=== PATIENT | male | born 1955 | race Caucasian/White ===

== ENCOUNTER 2018-05-29 20:42 | Observation (INO) | payer BC ==
[2018-05-29 21:14] LABS: #Eosinphils 0.1 thou/uL (0.0-0.7); #Lymphocytes 1.5 thou/uL (1.20-3.40); #Monocytes 1.2 thou/uL (0.11-0.59); #Neutrophils 13.8 thou/uL (1.40-6.50); %Basophils 0.2 % (0.0-1.0); %Eosinophils 0.5 % (0.0-10.0); %Lymphocytes 8.9 % (21.0-51.0); %Neutrophils 83.4 % (42.0-75.0); Hemoglobin 13.2 g/dL (14.0-18.0); Mean Corpuscular HGB CONC 34.6 g/dL (32.0-36.0); Mean Corpuscular Hemoglobin 31.1 pg (27.0-31.0); Mean Platelet Volume 6.8 fL (7.4-10.4); Platelet Count 248 thou/uL (130-400); RBC Distribution Width 11.6 % (11.5-14.5); Red Blood Cell (RBC) Count 4.25 mill/uL (4.70-6.10); White Blood Cell (WBC) Count 16.5 thou/uL (4.8-10.8)
[2018-05-29 21:27] LABS: INR-International Normal Ratio 1.1; PTT 27.2 SEC (22.9-36.1); Prothrombin Time 14.2 SEC (12.0-14.7)
[2018-05-29 21:33] LABS: ALT (SGPT) 20 U/L (8-55); AST (SGOT) 20 U/L (5-34); Albumin 4.1 g/dL (3.4-4.8); Alkaline Phosphatase 48 U/L (40-150); Anion Gap 12 mmol/L (10-20); BUN (Urea Nitrogen) 18 mg/dL (8.4-25.7); Bilirubin, Total 0.4 mg/dL (0.2-1.2); CK (CPK) 127 U/L (30-200); Calc. Creatinine Clearance 0 mL/min (70-130); Calcium 8.1 mg/dL (7.8-10.44); Carbon Dioxide 23 mmol/L (23-31); Chloride 110 mmol/L (98-107); Estimated GFR-MDRD 79; Globulin 2.9 g/dL (2.4-3.5); Glucose 111 mg/dL (80-115); Lipase 48 U/L (8-78); Potassium 4.3 mmol/L (3.5-5.1); Sodium 141 mmol/L (136-145)
[2018-05-29 21:37] LABS: CKMB 1.3 ng/mL (0-6.6); Troponin I Less than 0.010 ng/mL (< 0.028)
[2018-05-29 21:46] LABS: Bilirubin Negative (Negative); Blood, Urine Negative (Negative); Clarity CLEAR (Clear); Glucose, Urine (Dipstick) Negative (Negative); Leukocyte Negative (Negative); Nitrite Negative (Negative); Protein, Urine (Dipstick) Negative (Neg-Trace); Specific Gravity, Urine 1.011 (1.002-1.036); Urobilinogen 0.2 mg/dL (0.2-1.0); pH, Urine 6.5 (5.0-9.0)
[2018-05-29] MEDS ORDERED: Ondansetron HCl/PF 4 MG/2 ML Vial IVP PRN (22:54)
[2018-05-29] MEDS ORDERED: HYDROcodone/Acetaminophen 5/325 mg Tablet PO PRN ×2 (22:54)
[2018-05-29] MEDS ORDERED: Acetaminophen 325 MG TAB PO PRN (22:54)
[2018-05-29] MEDS ORDERED: Ondansetron ODT 4 MG TAB SL PRN (22:54)
[2018-05-29 23:12] VITALS: BMI 27.2
[2018-05-29] MEDS: Sodium Chloride 0.9% 1,000 ML IV SCH (23:32)
[2018-05-30 00:07] LABS: Hemoglobin 12.6 g/dL (14.0-18.0)
[2018-05-30 00:59] LABS: Troponin I Less than 0.010 ng/mL (< 0.028)
--- NOTE | 2018-05-30 03:33 | HP ---
PRIMARY CARE PHYSICIAN: Vivek Meraz M.D. CODE STATUS: FULL CODE. TIME OF EVALUATION: 2350 hours. CHIEF COMPLAINT: Rectal bleeding. HISTORY OF PRESENT ILLNESS: This is a 63 years old male patient with past medical history of no sign ificant medical problems, came to the hospital after an episode of rectal bleeding, after he was in a toilet and try to go to the room the patient passed out, that happened around 5:30 p.m. He could no t establish any clear triggers and the symptoms disappeared by its own. The patient has recent colon oscopy done yesterday and he was found to have some polyps that were removed, has not resolved yet, c olonoscopy was done again in house. Symptoms are severe. REVIEW OF SYSTEMS: Constitutional: No fever or chills, generalized weakness. Respiratory: No coug h, sputum production or shortness of breath. Cardiovascular: No chest pain, palpitation, shortness of breath. Gastrointestinal: The patient has lower gastrointestinal bleeding, no abdominal pain. C NS: The patient has an episode of syncope, no headache. Genitourinary: No burning with urination. Extremities: No leg swelling. All other systems were reviewed and negative except for the findings mentioned above. PAST MEDICAL HISTORY: No past medical history. PAST SURGICAL HISTORY: No surgical history. PSYCHIATRIC HISTORY: No previous psych history. SOCIAL HISTORY: The patient drinks every day, less than 5 drinks per day. KNOWN ALLERGIES: No known drug allergies. FAMILY HISTORY: Reviewed and noncontributory for current presentation. No history of colon cancer i n the family. REPORTED MEDICATIONS: Aspirin 81 daily. PHYSICAL EXAMINATION: VITAL SIGNS: On presentation, heart rate 79, respiratory rate was 24, oxygenation saturation was 98, blood pressure 145/80. GENERAL APPEARANCE: The patient was alert, oriented, not in any acute distress. HEENT: Eyes: Normal conjunctiva. Moist oral mucosa. Anicteric. NECK: No JVD. RESPIRATORY: Bilateral air entry. No rales, no wheezing. Symmetric expansion. CARDIOVASCULAR: Normal rate, regular rhythm. No murmurs, no gallop. No edema. ABDOMEN: Soft, normal bowel sounds. MUSCULOSKELETAL: Baseline range of motion and strength. No tenderness. SKIN: Warm and intact. No pallor, no rash or redness. Peripheral pulses are present. Capillary re fill seems to be intact. NEUROLOGIC: Baseline sensory. No evidence of any new focal weakness. Baseline speech. Cranial ner ves seem to be intact. PSYCHIATRIC: The patient is in good mood. No anxiety, oriented, optimal judgment. LABORATORY DATA: Reviewed. White count 16.5, hemoglobin 12.6, MCV 90, platelet count 248. Sodium 1 41, potassium 4.3, chloride 110, carbon dioxide 23, anion gap 12, BUN 18, creatinine 0.9, GFR 79, glu cose 111. Lactic acid 1.8, calcium 9.1, total bilirubin 0.4, AST 20, ALT 30. Troponins are negative x2. Beta natriuretic peptide was 16.9. Urine was negative. ASSESSMENT AND PLAN: The patient will be placed in the hospital with the following medical problems. 1. Syncope, most likely secondary to lower gastrointestinal bleeding, we will do carotid ultrasound and cardiac echo to rule out any other etiologies. 2. Lower gastrointestinal bleeding. The patient has had a procedure yesterday, we will call GI for further evaluation and need for any further planning. Hemoglobin is stable, monitor hemoglobin, and adjust treatment as needed. 3. Deep venous thrombosis prophylaxis. The patient is ambulatory.
[2018-05-30 03:37] LABS: Troponin I Less than 0.010 ng/mL (< 0.028)
[2018-05-30 03:54] LABS: Anion Gap 13 mmol/L (10-20); BUN (Urea Nitrogen) 16 mg/dL (8.4-25.7); Calc. Creatinine Clearance 123 mL/min (70-130); Calcium 8.1 mg/dL (7.8-10.44); Carbon Dioxide 22 mmol/L (23-31); Chloride 110 mmol/L (98-107); Estimated GFR-MDRD Greater than 90; Glucose 113 mg/dL (80-115); Potassium 4.2 mmol/L (3.5-5.1); Sodium 141 mmol/L (136-145)
[2018-05-30 05:57] LABS: Hemoglobin 11.8 g/dL (14.0-18.0)
[2018-05-30] MEDS: Fish Oil 1,000 MG CAP PO SCH (08:52)
[2018-05-30] MEDS: Multivit, Therapeutic 1 TAB PO SCH (08:52)
[2018-05-30] MEDS: Sodium Chloride 0.9% 1,000 ML IV SCH (08:52)
[2018-05-30] MEDS ORDERED: GoLYTELY 4,000 ml Bottle PO STA (09:40)
--- NOTE | 2018-05-30 10:26 | ULT ---
CAROTID ULTRASOUND: DATE: 05/30/18 COMPARISON: None. HISTORY: Syncope. TECHNIQUE: Multiplanar Carbajal scale and color Doppler images were obtained in a carotid ultrasound. Spectral keshia sis of the Doppler waveforms were performed. FINDINGS: No significant plaque is visualized in either internal or common carotid artery. The Doppler waveform s are normal bilaterally. Peak systolic velocity in the right ICA is 72 cm/second. Peak systolic velocity in the right CCA is 8 3 cm/second. The right ICA/CCA ratio is 0.9. Peak systolic velocity in the left ICA is 68 cm/second. Peak systolic velocity in the left CCA is 78 cm/second. The left ICA/CCA ratio is 0.9. Both vertebral arteries demonstrate antegrade flow without focal stenosis. IMPRESSION: No evidence of hemodynamically significant stenosis. POS: CHHAYA
[2018-05-30] MEDS ORDERED: PROPOFOL 200 MG/20 ML VIAL ONE (11:19)
--- NOTE | 2018-05-30 12:38 | CON ---
DATE OF CONSULTATION: 05/30/2018 GASTROENTEROLOGY CONSULTATION CHIEF COMPLAINT: Blood in the stool. HISTORY OF PRESENT ILLNESS: Mr. Hoffman is a 63-year-old man who underwent colonoscopy by Dr. Jeramy champion on Thursday, 2 days ago. He took out a very large 5 cm polyp from the ascending colon. This was re moved in piecemeal fashion and was treated with argon plasma coagulation and Hemoclip was placed over a depressed red spot in the base of the polypectomy ulcer. The patient did well initially following the procedure; however, yesterday evening around 6:00 p.m., he developed 3 episodes of hematochezia. Following this, he was standing up and then passed out with brief loss of consciousness. He then t ried to sit back up and felt like he was about to pass out again. His had him brought to the em ergency room by ambulance and he received IV fluids and has been feeling fine since then. He has no nausea or vomiting, no diarrhea or constipation otherwise. He has had no bowel movement since early yesterday evening. PAST MEDICAL HISTORY: Arthritis. PAST SURGICAL HISTORY: Colonoscopy 2 days ago. FAMILY HISTORY: Negative for GI malignancy. SOCIAL HISTORY: He drinks a couple of beers daily. ALLERGIES: No known drug allergies. MEDICATIONS: He takes aspirin daily in addition to meloxicam. REVIEW OF SYSTEMS: Negative x10 systems reviewed except as stated in the history of present illness. PHYSICAL EXAMINATION: VITAL SIGNS: Temperature 98.4, pulse 60, blood pressure 133/76. GENERAL: He is in no acute distress. He is alert and oriented x3. HEENT: Eyes have no scleral icterus. Oropharynx is clear without lesions. NECK: No cervical or supraclavicular lymphadenopathy. LUNGS: Clear to auscultation bilaterally. HEART: Regular rate and rhythm. ABDOMEN: Soft, nontender, nondistended. Bowel sounds are present. EXTREMITIES: No lower extremity edema. LABORATORY DATA: White blood cell count was 16.5 on presentation. Hemoglobin was 13.2 and this has decreased to 11.8 this morning. INR 1.1, creatinine 0.76. IMPRESSION: 1. Post-polypectomy hemorrhage after a large right-sided polypectomy 2 days ago. 2. His white blood cell count is noted to be elevated; however, he has no tenderness in the right lo wer quadrant to indicate a more significant post-polypectomy syndrome. RECOMMENDATIONS: He will receive bowel prep today and we will perform colonoscopy today.
[2018-05-30 12:44] LABS: Hemoglobin 13.1 g/dL (14.0-18.0)
[2018-05-30] MEDS ORDERED: Sodium Chloride 0.9% 1,000 ML IV SCH (13:00)
[2018-05-30] MEDS ORDERED: Fentanyl 100 MCG/2 ML VIAL ONE (13:45)
[2018-05-30 18:22] VITALS: TEMP 97.8
--- NOTE | 2018-05-30 19:03 | PDOC.PN ---
- Subjective Encounter Start Date: 05/30/18 Encounter Start Time: 11:30 Subjective: pt up in bed no complains - Objective Resuscitation Status: Resuscitation Status FULL:Full Resuscitation Vital Signs & Weight: Vital Signs (12 hours) Temp Pulse Resp BP Pulse Ox 05/30/18 18:21 97.8 F 68 20 120/63 98 05/30/18 15:44 97.5 F L 67 16 123/74 100 05/30/18 12:13 97.5 F L 69 16 122/81 98 05/30/18 08:50 98.4 F 60 20 05/30/18 07:12 98.4 F 60 20 133/76 96 Weight Weight 195 lb 3.2 oz I&O: 05/29/18 05/30/18 05/31/18 06:59 06:59 06:59 Intake Total 5482 Balance 5482 Result Diagrams: 05/30/18 12:23 05/30/18 03:11 Phys Exam - Physical Examination HEENT: PERRLA, moist MMs, sclera anicteric, TM's clear, oral pharynx no lesions , 2+ tonsils Neck: no nodes, no JVD, supple, full ROM Respiratory: no wheezing, no rales, no rhonchi, wheezing present, clear to auscultation bilateral Cardiovascular: RRR, no significant murmur, no rub, gallop, irregular Gastrointestinal: soft, non-tender, no distention, positive bowel sounds Dx/Plan (1) Lower GI bleed Code(s): K92.2 - GASTROINTESTINAL HEMORRHAGE, UNSPECIFIED Status: Acute (2) Syncope Code(s): R55 - SYNCOPE AND COLLAPSE Status: Acute - Plan pt had recent colonoscopy on thursday. -: pt will drinking prep for colonoscopy today -: hh stable -: echo/carotid doppler normal * . Review of Systems - Review of Systems ENT: negative: Ear Pain, Ear Discharge, Nose Pain, Nose Discharge, Nose Congestion, Mouth Pain, Mouth Swelling, Throat Pain, Throat Swelling, Other Respiratory: negative: Cough, Dry, Shortness of Breath, Hemoptysis, SOB with Excertion, Pleuritic Pain, Sputum, Wheezing Cardiovascular: negative: chest pain, palpitations, orthopnea, paroxysmal nocturnal dyspnea, edema, light headedness, other Gastrointestinal: negative: Nausea, Vomiting, Abdominal Pain, Diarrhea, Constipation, Melena, Hematochezia, Other - Medications/Allergies Allergies/Adverse Reactions: Allergies Allergy/AdvReac Type Severity Reaction Status Date / Time No Known Drug Allergies Allergy Verified 05/29/18 22:54 Medications: Current Medications Fish Oil (Fish Oil) 1,000 mg PO DAILY [facility] Last Admin: 05/30/18 08:52 Dose: Not Given Multivitamins (Theragran) 1 tab PO DAILY [facility] Last Admin: 05/30/18 08:52 Dose: Not Given
--- NOTE | 2018-05-30 19:55 | OP ---
DATE OF PROCEDURE: 05/30/2018 PROCEDURE: Colonoscopy with control of hemorrhage. PREOPERATIVE DIAGNOSIS: Lower gastrointestinal bleed from polypectomy ulcer. PROCEDURE IN DETAIL: Informed consent was obtained from the patient. He was sedated with total intr avenous anesthesia. The rectal exam was performed and was normal. The preparation quality was good. The colonoscope was advanced to the cecum where the ileocecal valve and appendiceal orifice were cl early identified. There was some red-tinged fluid in the distal colon; however, the active bleeding has stopped. The polypectomy ulcer was identified in the proximal ascending colon. Two Hemoclips we re in place. There were two red spots in the polypectomy ulcer base, which were the potential bleedi ng sites. A Hemoclip was placed over both sites. There was diverticulosis in the left colon. The r emainder of the colonic mucosa was unremarkable including retroflexed views. IMPRESSION: 1. Polypectomy ulcer in the ascending colon with no residual polyp identified. Two clips were noted to be in place. There is no ongoing active bleed. Two additional Hemoclips were placed over 2 red spots in the ulcer base with good hemostasis confirmed. 2. Left-sided diverticulosis. RECOMMENDATIONS: 1. Follow up with Dr. Jones in a week. 2. Advance diet.
[2018-05-31 05:22] LABS: #Basophils 0.1 thou/uL (0.0-0.2); #Eosinphils 0.2 thou/uL (0.0-0.7); #Lymphocytes 1.7 thou/uL (1.20-3.40); #Monocytes 0.6 thou/uL (0.11-0.59); #Neutrophils 4.4 thou/uL (1.40-6.50); %Basophils 0.8 % (0.0-1.0); %Eosinophils 2.7 % (0.0-10.0); %Lymphocytes 23.7 % (21.0-51.0); %Monocytes 9.2 % (0.0-10.0); %Neutrophils 63.6 % (42.0-75.0); Hemoglobin 11.5 g/dL (14.0-18.0); Mean Corpuscular Hemoglobin 31.3 pg (27.0-31.0); Mean Corpuscular Volume 89.5 fL (78.0-98.0); Mean Platelet Volume 6.8 fL (7.4-10.4); Platelet Count 212 thou/uL (130-400); RBC Distribution Width 11.5 % (11.5-14.5); Red Blood Cell (RBC) Count 3.67 mill/uL (4.70-6.10)
[2018-05-31 08:13] VITALS: BP 123/76
[2018-05-31] MEDS: Multivit, Therapeutic 1 TAB PO SCH (09:12)
[2018-05-31] MEDS: Fish Oil 1,000 MG CAP PO SCH (09:12)
--- NOTE | 2018-05-31 09:52 | PRG ---
DATE OF SERVICE: 05/31/2018. SUBJECTIVE: Mr. Hoffman has done well since followup colonoscopy. He has had no further stool out put. He has no abdominal discomfort. He has been tolerating his diet well. OBJECTIVE: VITAL SIGNS: Temperature 97.8, pulse 72, blood pressure 123/76. ABDOMEN: Soft, nontender. Bowel sounds are present. LABORATORY DATA: Hemoglobin 11.5. IMPRESSION: Post-polypectomy hemorrhage, resolved. Two additional Hemoclips were placed over a coup le of red spots in the polypectomy ulcer base. He has had no further bleeding since admission. PLAN: 1. He will follow up with Dr. Jones later this week to go over biopsy results from the large polyp that was removed from the ascending colon. 2. Discharge home this morning.
--- NOTE | 2018-05-31 10:39 | DIS ---
DATE OF ADMISSION: 05/29/2018 DATE OF DISCHARGE: 05/31/2018 PRIMARY CARE PHYSICIAN: Dr. Vivek Meraz DISCHARGE DIAGNOSES: 1. Post-procedure lower gastrointestinal hemorrhage. 2. Polypectomy ulcer. 3. Syncope and collapse. 4. Acute blood loss anemia. CONSULTATIONS: Gastroenterology, Dr. Alvaro Garcia. PROCEDURES: Colonoscopy 05/30/2018 that showed a polypectomy ulcer with no active bleed and 2 hemost atic clips and 2 more hemostatic clips were placed. HISTORY AND PHYSICAL: Mr. Hoffman is a 63-year-old white gentleman with a history of recent colono scopy and polypectomy. The patient did well intraoperatively; however, the day after the procedure t he patient noted rectal bleeding around 5:30 p.m. They seemed to resolve on their own and had not had any more. The patient did pass out and so we were called for admission. HOSPITAL COURSE: The patient was seen and examined by Dr. Pierson, placed in observation. Echo and carotid ultrasounds were done that were unremarkable. Hemoglobin did initially start at 13.2, dropp ed to 11.8, remained stable at 13.1 today. The patient had no further rectal bleeding. He did go to the endoscopy suite on 05/30/2018 where an ulceration was found at the polypectomy site. Hemostatic clips were in place and no active bleed. Two more clips were placed with good hemostasis continued and the patient was watched overnight. Today, he has done well, had no more syncope or presyncope. Blood counts are stable. He is stable f or discharge with outpatient followup. FOLLOWUP: 1. Primary care physician in [address] Jones with Gastroenterology in 2-3 weeks. DISCHARGE CONDITION: Stable. DISPOSITION: He will be discharged home via private vehicle. DISCHARGE ACTIVITY: Per cardiopulmonary limits. The patient has been given excused from work medica lly until he is stable to return 06/02/2018 if he does not have any further episodes. DISCHARGE DIET: Heart healthy recommended. DISCHARGE MEDICATIONS: 1. Multivitamin daily. 2. [place] 3 tablet daily. 3. Aspirin 81 mg daily. 4. Meloxicam 15 mg daily.
== END 2018-05-31 11:32 | disposition home or self-care (01) ==
LOC: ERS 20:42 → 2SW 22:45
PROVIDERS: ADMIT Hospitalist; ATTEND Hospitalist
PROC: 0W3P8ZZ Control Bleeding in Gastrointestinal Tract, Via Natural or Artificial Opening Endoscopic (ICD-10-PCS; principal; 2018-05-30)
DX: K91.840 Postprocedural hemorrhage of a digestive system organ or structure following a digestive system procedure (principal); K57.30 Diverticulosis of large intestine without perforation or abscess without bleeding; R55 Syncope and collapse; M19.90 Unspecified osteoarthritis, unspecified site; D62 Acute posthemorrhagic anemia; Z86.010 Personal history of colon polyps; Z79.82 Long term (current) use of aspirin; Z79.899 Other long term (current) drug therapy; Z98.890 Other specified postprocedural states
CPT/HCPCS: 36415; 80048; 80053; 81003; 82274; 82553; 83605; 83690; 83880; 84484; 85018; 85025; 85610; 85730; 86850; 86900; 86901; 93306; 93880; 96360; 96361; 99285; G0378; J2704; J3010

== ENCOUNTER 2018-06-21 11:30 | Inpatient (IN) | payer BC ==
[2018-06-22 13:32] VITALS: BMI 27.1
[2018-06-29] MEDS ORDERED: Sodium Chloride 0.9% 100 ML ONE (11:28)
[2018-06-29] MEDS ORDERED: Ketorolac Tromethamine 30 MG/ML VIAL ONE (11:28)
[2018-06-29] MEDS ORDERED: cefOXitin 2 GM VIAL ONE (11:28)
[2018-06-29] MEDS ORDERED: Midazolam HCl 2 mg/2 ml Vial ONE (12:31)
[2018-06-29] MEDS ORDERED: Fentanyl 100 MCG/2 ML VIAL ONE (12:31)
[2018-06-29] MEDS ORDERED: Dexamethasone 4 mg/ml Vial ONE (12:32)
[2018-06-29] MEDS ORDERED: Bupivacaine HCl 0.5%/Epinephrine 1:200,000/PF 30 ml Vial ONE (13:48)
[2018-06-29] MEDS ORDERED: Fentanyl 250 MCG/5 ML VIAL ONE (14:24)
[2018-06-29] MEDS ORDERED: PHENYLEPHRINE-NS 100 MCG/ML 10 ML SYRINGE ONE (14:31)
[2018-06-29] MEDS ORDERED: PROPOFOL 200 MG/20 ML VIAL ONE (14:31)
[2018-06-29] MEDS ORDERED: diphenhydrAMINE 50 MG/ML VIAL ONE (14:31)
[2018-06-29] MEDS ORDERED: Dexamethasone 20 MG/5 ML VIAL ONE (14:31)
[2018-06-29] MEDS ORDERED: Metoclopramide HCl 10 MG/2 ML VIAL ONE (14:31)
[2018-06-29] MEDS ORDERED: Lidocaine 1% PF 5 ML VIAL ONE (14:31)
[2018-06-29] MEDS ORDERED: Glycopyrrolate 0.2 MG/ML 5 ML SYRINGE ONE (14:31)
[2018-06-29] MEDS ORDERED: Ondansetron HCl/PF 4 MG/2 ML Vial ONE (14:31)
[2018-06-29] MEDS ORDERED: Indocyanine Green 25 MG/10 ML VIAL ONE (14:35)
[2018-06-29] MEDS ORDERED: Bupivacaine/Epinephrine 0.25% 30 ML VIAL ONE (14:35)
[2018-06-29] MEDS ORDERED: Promethazine HCl 25 MG/ML VIAL IM PRN ×2 (19:32→21:21)
[2018-06-29] MEDS ORDERED: Ondansetron HCl/PF 4 MG/2 ML Vial IVP PRN ×2 (19:32→21:21)
[2018-06-29] MEDS ORDERED: Promethazine HCl 25 MG/ML VIAL SLOW IVP PRN (19:32)
[2018-06-29] MEDS ORDERED: Morphine 4 MG/ML Carpuject SLOW IVP PRN (21:21)
[2018-06-29] MEDS ORDERED: hydrALAZINE 20 MG/ML VIAL SLOW IVP PRN (21:21)
[2018-06-29] MEDS ORDERED: Morphine 4 MG/ML VIAL SLOW IVP PRN (21:41)
[2018-06-29] MEDS ORDERED: Famotidine/PF 20 mg/2ml Vial SLOW IVP SCH (21:45)
--- NOTE | 2018-06-29 21:45 | CON ---
DATE OF CONSULTATION: 06/29/[address] Grissom regarding difficult Horton catheter placement, subsequent hematu rolly. HISTORY OF PRESENT ILLNESS: Mr. Hoffman is a 63-year-old male currently on the operating room table about to undergo robotic-assisted laparoscopic hemicolectomy. The patient was found to h ave some polyps of concern. As the patient was being prepped, an indwelling Horton catheter was place d by the OR staff, demonstrated difficulty passing to the level of the bladder, balloon was not infla laura; however, subsequently had gross hematuria with non-drainage of his Horton bag. Review of records was obtained as well as history obtained from Dr. Grissom demonstrates no significa nt past medical or surgical history, no history of record. Family is not available to obtain any pertinent urologic history. PAST MEDICAL HISTORY: Colon polyps. PAST SURGICAL HISTORY: None. PSYCHIATRIC HISTORY: None. SOCIAL HISTORY: Social drinker. ALLERGIES: No known drug allergies. FAMILY HISTORY: Noncontributory. HOME MEDICATIONS: Include multivitamin and omega-3. PHYSICAL EXAMINATION: GENERAL: The patient is currently intubated in dorsal lithotomy position. There is gross blood at t he meatus. ABDOMEN: Soft, nontender, nondistended. GENITOURINARY: Circumcised. Meatus is grossly unremarkable with no significant meatal stenosis. Te stes are descended with no evidence of intratesticular mass. RECTAL: Digital rectal exam, approximately 35 to 40-gram prostate with no discrete nodularity. EXTREMITIES: No cyanosis, clubbing, or edema. PERTINENT LABORATORY AND IMAGING: White count 5, hemoglobin 14, platelet 342. Coagulation profile i s within normal limits. Creatinine is 0.8. PSA, 03/2018, 1.59. 05/2018 UA is grossly unremarkable. There is no prior urine culture. No imaging to review. IMPRESSION AND PLAN: 1. Mr. Hoffman is a 63-year-old male currently on the operating room table, about to undergo robot ic-assisted hemicolectomy. 2. Difficult Horton catheter placement. Please see my operative note regarding details.
--- NOTE | 2018-06-29 22:08 | OP ---
DATE OF PROCEDURE: 06/29/2018 PREOPERATIVE DIAGNOSIS: Gross hematuria, traumatic Horton catheter placement. POSTOPERATIVE DIAGNOSIS: Gross hematuria, traumatic Horton catheter placement. PROCEDURES: Diagnostic cystoscopy, 18-Barb[place] Councill-tip Horton catheter over guidewire assist, urethral dilatation. SURGEON: Jessenia Almonte DO ANESTHESIA: General. COMPLICATIONS: None. DISPOSITION: The patient to undergo robotic hemicolectomy by Dr. Grissom. INTRAOPERATIVE FINDINGS: 1. Mild BPH component with no significant outlet obstruction from BPH. 2. Multi-annular proximal penile bulbar stricture, caliber approximately 14-16 [place]. 3. 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 INDICATIONS FOR THE PROCEDURE AND HISTORY: Mr. Hoffman is undergoing a robotic hemicolectomy, unable to place a Horton catheter and subsequent gross hematuria. Cystoscopy confirms Horton false passage due to history of urethral stricture disease, occult. DESCRIPTION OF PROCEDURE: The patient currently in dorsal lithotomy position. Genital area was formally prepped and draped. We first used a flexible cystoscope to stage. There was a large false passage at the anterior bulbar urethra. A flap of mucosa was seen just ventral to this. We used a 0.35 guidewire to get underneath the flap of mucosa, which was the true lumen. The wire was passed to the level of the bladder. I was unable to pass the flexible cystoscope as there were multiple annular strictures with a false passage associated with it. Therefore, I did transition to a 17-Barbadian rigid cystoscope. Wire was followed to the level of the bladder. Again noted was multi-annular bulbar penile stricture, approximately 3-4 in number, most of these were wide caliber in which I was able to get the rigid cystoscope without significant issues to the level of the bladder. Prostatic urethra demonstrated coapting lateral lobes with no significant outlet obstruction per se. Bladder was grossly unremarkable. The ureteral orifices were identified in normal anatomical location approximately 5-8 mm away from the bladder neck. No significant trabeculation tumor or stones were visualized. With the wire in situ, I did passively dilate his strictures with a 22-Barbadian cystoscope without difficulty. Subsequently, an 18-Bar[place] Councill-tip Horton catheter was passed over a guidewire assist. Guidewire was then subsequently removed and 10 mL insufflated. The patient tolerated the procedure well. He will undergo robotic hemicolectomy per Dr. Grissom. I do recommend coverage due to false passage. Antibiotics for a few days. He will have an indwelling Horton catheter for minimum 7-10 days due to history of stricture, false passage. [facility]
[2018-06-29] MEDS: D5 1/2 NS w/20 mEq KCL 1,000 ML IV SCH (23:38)
[2018-06-29] MEDS: Acetaminophen 1,000 MG in Premix Bag 1 BAG IVPB SCH (23:39)
[2018-06-29] MEDS: Ketorolac Tromethamine 30 MG/ML VIAL IVP SCH (23:39)
[2018-06-30 04:49] LABS: #Lymphocytes 0.5 thou/uL (1.20-3.40); #Monocytes 0.5 thou/uL (0.11-0.59); #Neutrophils 12.7 thou/uL (1.40-6.50); %Basophils 0.1 % (0.0-1.0); %Eosinophils 0.1 % (0.0-10.0); %Lymphocytes 3.7 % (21.0-51.0); %Monocytes 3.5 % (0.0-10.0); %Neutrophils 92.6 % (42.0-75.0); Hemoglobin 12.5 g/dL (14.0-18.0); Mean Corpuscular HGB CONC 33.1 g/dL (32.0-36.0); Mean Corpuscular Hemoglobin 29.7 pg (27.0-31.0); Mean Corpuscular Volume 89.7 fL (78.0-98.0); Mean Platelet Volume 7.3 fL (7.4-10.4); Platelet Count 311 thou/uL (130-400); RBC Distribution Width 11.5 % (11.5-14.5); Red Blood Cell (RBC) Count 4.21 mill/uL (4.70-6.10); White Blood Cell (WBC) Count 13.7 thou/uL (4.8-10.8)
[2018-06-30 04:59] LABS: Anion Gap 11 mmol/L (10-20); BUN (Urea Nitrogen) 12 mg/dL (8.4-25.7); Calc. Creatinine Clearance 109 mL/min (70-130); Calcium 8.4 mg/dL (7.8-10.44); Carbon Dioxide 22 mmol/L (23-31); Chloride 106 mmol/L (98-107); Estimated GFR-MDRD 90; Glucose 185 mg/dL (80-115); Sodium 135 mmol/L (136-145)
[2018-06-30] MEDS: Acetaminophen 1,000 MG in Premix Bag 1 BAG IVPB SCH ×3 (05:09→16:51)
[2018-06-30] MEDS: Ketorolac Tromethamine 30 MG/ML VIAL IVP SCH ×4 (05:10→20:52)
[2018-06-30] MEDS: D5 1/2 NS w/20 mEq KCL 1,000 ML IV SCH ×3 (06:22→23:38)
--- NOTE | 2018-06-30 07:51 | PRG ---
DATE OF SERVICE: 06/30/2018 SUBJECTIVE: The patient is resting comfortably in minimal discomfort. Catheter draining clear yellow urine. No significant discharge per meatus. PHYSICAL EXAMINATION: VITAL SIGNS: Stable. He is afebrile. ABDOMEN: Soft, nontender, nondistended. GENITOURINARY: Horton catheter adequately secured with clear dilute urine. No active oozing from the meatus is noted. EXTREMITIES: No cyanosis, clubbing or edema. LABORATORY DATA: White blood cell count 13, hemoglobin 12, platelets 0.8. IMPRESSION AND PLAN: 1. Mr. Hoffman is a 63-year-old male status post cystoscopy, Horton catheter over guidewire assist, urethral dilatation. 2. False passage traumatic Horton catheter placement. 3. Cystoscopy demonstrating multiannular urethral stricture. No significant BPH component. 4. Digital rectal exam intraoperative was grossly unremarkable with no significant outlet obstruction contributing from the prostate on cystoscopy. As urine output is clear, may start his Lovenox subcu for DVT prophylaxis. I do recommend antibiotic regimen. Discussed with patient and regarding indications for indwelling Horton catheter due to history of stricture false passage. He does relate prior history of decreased stream for quite some time. When the patient is ready for discharge, Horton catheter will be transitioned to a leg bag. will follow on this admission. MOLLY
[2018-06-30] MEDS ORDERED: Enoxaparin Sodium 40 MG/0.4 ML SYRINGE SC SCH ×2 (09:00)
[2018-06-30] MEDS: Famotidine/PF 20 mg/2ml Vial SLOW IVP SCH ×2 (09:04→20:55)
[2018-06-30] MEDS: Famotidine 20 MG TAB PO SCH ×2 (09:39→20:52)
[2018-06-30] MEDS ORDERED: cefTRIAXone\\ROCEPHIN 1 GM, Syringe 0.4 ML in Sterile Water 9.6 ML SLOW IVP SCH (20:00)
[2018-06-30] MEDS: cefTRIAXone\\ROCEPHIN 1 GM in Sodium Chloride 0.9% 100 ML IVPB SCH (20:52)
[2018-06-30] MEDS ORDERED: HYDROcodone/Acetaminophen 7.5/325 mg Tablet PO PRN ×2 (21:54→21:55)
[2018-07-01] MEDS: Ketorolac Tromethamine 30 MG/ML VIAL IVP SCH ×3 (04:03→16:22)
[2018-07-01] MEDS: D5 1/2 NS w/20 mEq KCL 1,000 ML IV SCH ×3 (04:04→20:45)
[2018-07-01] MEDS: Famotidine 20 MG TAB PO SCH ×2 (08:20→20:44)
[2018-07-01] MEDS: Famotidine/PF 20 mg/2ml Vial SLOW IVP SCH ×2 (08:22→20:45)
--- NOTE | 2018-07-01 08:33 | PRG ---
DATE OF SERVICE: 07/01/2018 SUBJECTIVE: The patient without complaints. PHYSICAL EXAMINATION: VITAL SIGNS: Vital signs are stable, having bowel movements ready for discharge today. 1550 of shantel r dilute urine noted. ABDOMEN: Soft. GENITOURINARY: Horton catheter adequately secured, I did transition him at bedside to a leg bag. IMPRESSION AND PLAN: Mr. Hoffman is a 63-year-old male. Intraoperative consultation obtained due to false passage traumatic Horton catheter. Cystoscopy demonstrating multiannular bulbar stricture. No significant BPH component. Catheter was placed over guidewire assist. Recommend indwelling Horton catheter until followup appointment next , appointment in chart. The patient to take antibi otics for 10 days, ciprofloxacin prescription is in chart. Instruct patient regarding leg bag gravit y bag use. Follow up next week for catheter removal. Recommend staging cystoscopy at a later date.
[2018-07-01 12:17] LABS: Hemoglobin 9.6 g/dL (14.0-18.0); Mean Corpuscular HGB CONC 31.7 g/dL (32.0-36.0); Mean Corpuscular Volume 91.5 fL (78.0-98.0); Mean Platelet Volume 7.1 fL (7.4-10.4); Platelet Count 338 thou/uL (130-400); RBC Distribution Width 11.6 % (11.5-14.5); Red Blood Cell (RBC) Count 3.31 mill/uL (4.70-6.10); White Blood Cell (WBC) Count 20.9 thou/uL (4.8-10.8)
[2018-07-01 12:37] LABS: ALT (SGPT) 17 U/L (8-55); AST (SGOT) 21 U/L (5-34); Albumin 3.4 g/dL (3.4-4.8); Alkaline Phosphatase 41 U/L (40-150); Anion Gap 9 mmol/L (10-20); BUN (Urea Nitrogen) 16 mg/dL (8.4-25.7); Bilirubin, Total 0.3 mg/dL (0.2-1.2); Calc. Creatinine Clearance 103 mL/min (70-130); Calcium 8.1 mg/dL (7.8-10.44); Carbon Dioxide 22 mmol/L (23-31); Chloride 109 mmol/L (98-107); Estimated GFR-MDRD 84; Globulin 2.5 g/dL (2.4-3.5); Glucose 130 mg/dL (80-115); Protein, Total 5.9 g/dL (5.8-8.1); Sodium 136 mmol/L (136-145)
[2018-07-01 12:40] LABS: Band 7 % (5-11); Lymphocytes 11 % (21-51); MDiff Complete? YES; Monocytes 3 % (0-10); Neutrophil 79 % (42-75); PLT Morphology Comment Appears Adequate
[2018-07-01 14:16] LABS: Hemoglobin 8.8 g/dL (14.0-18.0)
[2018-07-01 14:48] LABS: INR-International Normal Ratio 1.2; PTT 29.2 SEC (22.9-36.1); Prothrombin Time 15.3 SEC (12.0-14.7)
--- NOTE | 2018-07-01 15:01 | PRG ---
DATE OF SERVICE: 07/01/2018 SUBJECTIVE: Mr. Hoffman is postoperative day number 2 from robotic right colectomy. He appeared t o be doing very well yesterday, was tolerating his liquid diet and ambulating well. He was entirely hemodynamically stable. This morning, he was advanced to full liquid diet. He has had at least 3 daniella wel movements today. The first one had some old blood, about which is reassured. By the third one, he had had evidence of more blood per rectum and at the time he had his third bowel movement, he appa rently lost consciousness. This was a witnessed episode and nursing staff did a wonderful job taking care of him and stabilizing him, so he did not fall and transferring him to the wheelchair and subse quently to his bed. He regained consciousness fairly quickly. He did have a lot of sweating at that time. He was not tachycardic, but his blood pressure did drop down to the mid 90s systolic. By the time I came to see him after this episode, he was resting comfortably in bed and had no compla ints. He notes that he has never had any significant abdominal pain. His appetite has been fine. PHYSICAL EXAMINATION: VITAL SIGNS: He is afebrile, pulse is in the 60s-70s, blood pressure prior to this episode was 120s/ 70. Currently, it is 99/65. LUNGS: Clear to auscultation. CARDIAC: Regular rate and rhythm without murmur. ABDOMEN: Soft, nontender, nondistended. Laparoscopic incisions are healing nicely with Dermabond in tact. Bowel sounds are present and normoactive. EXTREMITIES: Entirely unremarkable. LABORATORY STUDIES: His hemoglobin at noon today dropped from 12.5 yesterday down to 9.6. A followu p study obtained 2 hours later showed a hemoglobin of 8.8. His platelet count was normal at 338,000. His white count is elevated at 20.9 following his loss of consciousness. His chemistry panel revea ls no significant electrolyte abnormalities. ASSESSMENT AND PLAN: The patient appears to have had a postoperative bleed. I suspect this is anast omotic. His Lovenox has been discontinued. He was changed back down to a clear liquid diet and he i s encouraged to remain at bed rest. He does have in his indwelling Horton catheter, which he will req uire for the next week. His urine output is clear and of excellent volume. Depending upon whether h e shows evidence of continued blood loss, he may or may not need a colonoscopy to evaluate this. For now, I would imagine that would not be likely. I will plan on watching him at bed rest today and th en resume his activity and hopefully his diet tomorrow. If there is evidence of further blood loss, then colonoscopy will be arranged. I have already spoken with Dr. Jones regarding this.
[2018-07-01 18:31] LABS: #Eosinphils 0.1 thou/uL (0.0-0.7); #Lymphocytes 2.2 thou/uL (1.20-3.40); #Neutrophils 9.8 thou/uL (1.40-6.50); %Basophils 0.2 % (0.0-1.0); %Eosinophils 0.4 % (0.0-10.0); %Lymphocytes 16.6 % (21.0-51.0); %Monocytes 7.8 % (0.0-10.0); %Neutrophils 74.9 % (42.0-75.0); Hemoglobin 8.7 g/dL (14.0-18.0); Mean Corpuscular HGB CONC 32.7 g/dL (32.0-36.0); Mean Corpuscular Hemoglobin 29.9 pg (27.0-31.0); Mean Corpuscular Volume 91.6 fL (78.0-98.0); Platelet Count 273 thou/uL (130-400); RBC Distribution Width 11.6 % (11.5-14.5); White Blood Cell (WBC) Count 13.1 thou/uL (4.8-10.8)
[2018-07-01] MEDS: cefTRIAXone\\ROCEPHIN 1 GM in Sodium Chloride 0.9% 100 ML IVPB SCH (20:44)
[2018-07-02] MEDS: D5 1/2 NS w/20 mEq KCL 1,000 ML IV SCH ×3 (03:57→20:55)
[2018-07-02 05:38] LABS: #Eosinphils 0.1 thou/uL (0.0-0.7); #Lymphocytes 1.8 thou/uL (1.20-3.40); #Monocytes 0.8 thou/uL (0.11-0.59); #Neutrophils 5.6 thou/uL (1.40-6.50); %Basophils 0.4 % (0.0-1.0); %Eosinophils 1.2 % (0.0-10.0); %Lymphocytes 21.6 % (21.0-51.0); %Monocytes 9.4 % (0.0-10.0); %Neutrophils 67.5 % (42.0-75.0); Hemoglobin 7.6 g/dL (14.0-18.0); Mean Corpuscular HGB CONC 32.8 g/dL (32.0-36.0); Mean Corpuscular Hemoglobin 30.2 pg (27.0-31.0); Mean Corpuscular Volume 92.1 fL (78.0-98.0); Mean Platelet Volume 7.5 fL (7.4-10.4); Platelet Count 243 thou/uL (130-400); RBC Distribution Width 11.5 % (11.5-14.5); Red Blood Cell (RBC) Count 2.51 mill/uL (4.70-6.10); White Blood Cell (WBC) Count 8.2 thou/uL (4.8-10.8)
--- NOTE | 2018-07-02 08:26 | PRG ---
DATE OF SERVICE: 07/02/2018 SUBJECTIVE: The patient is alert and awake, at bedside, states that he feels well, events over the last 24 hours reviewed, patient had a syncopal episode due to acute blood loss. Currently, his vital signs are stable. Lovenox has been on hold.. PHYSICAL EXAMINATION: VITAL SIGNS: Stable at 97.8, 62, 16, 98%, blood pressure 108/71. I's and O's 6470 in and 4950 out of clear dilute urine. He is positive 1.5 liters. EXTREMITIES: Denies passage of gross bloody stool this morning. PERTINENT LABORATORY DATA: White count 8, hemoglobin 7.6 yesterday with an episode of syncopal episode code. His white count increased to 20.9, hemoglobin decreased from 12.5 to 9.6, platelet today is 243. Renal function is stable. Creatinine 0.9. IMPRESSION AND PLAN: Mr. Hoffman is a 63-year-old male postoperative day #3, status post robotic-assisted colectomy. intraoperative consultation obtained due to traumatic Horton catheter placement with false passage, required cystoscopic assistance of Horton catheter placement over guidewire. He was also found to have multi-annular bulbar stricture, which was passively dilated. His catheter remains in situ demonstrating clear dilute urine. The patient is currently on Rocephin, cont until catheter is removed next week.. follow- up appointment in chart next . I discussed the patient's case with Dr. Grissom. Hopefully, patient can be discharged tomorrow. Disposition in chart. Outpatient antibiotic prescription of ciprofloxacin in chart until followup appointment. He will be discharged with indwelling urethral Horton catheter to leg bag. Discharged instructions in chart. MTDD
[2018-07-02] MEDS: Famotidine 20 MG TAB PO SCH ×2 (08:31→20:57)
--- NOTE | 2018-07-02 16:28 | PQF ---
CLINICAL DOCUMENTATION IMPROVEMENT CLARIFICATION FORM: ICD-10 Updated PLEASE DO AN ADDENDUM TO THE PROGRESS NOTE WITH ANY DOCUMENTATION UPDATES OR ADDITIONS AND CARRY THROUGH TO DC SUMMARY. THANK YOU. DATE: 07/02/18 ATTN: Dr. Grissom Please exercise your independent, professional judgment in responding to the clarification form. Clinical indicators are provided on the bottom of this form for your review Please check appropriate box(s): [ x ] Post-op anemia related to acute blood loss [ ] Acute blood loss anemia [ ] Other diagnosis [ ] Unable to determine In addition, please specify: Present on Admission (POA): [ ] Yes [ ] No [ ] Unable to determine For continuity of documentation, please document condition throughout progress notes and discharge summary. Thank You. CLINICAL INDICATORS - SIGNS / SYMPTOMS/ LABS are present in the medical record: PN 07/01: HIS HEMOGLOBIN AT NOON TODAY DROPPED FROM 12.5 YESTERDAY DOWN TO 9.6. A FOLLOWUP STUDY OBTAINED 2 HOURS LATER SHOWED HEMOGLOBIN OF 8.8 THE PT APPEARS TO HAVE HAD A POSTOPERATIVE BLEED. SUSPECT THIS IS ANASTOMOTIC UROLOGY PN 07/02: PT HAD A SYNCOPAL EPISODE DUE TO ACUTE BLOOD LOSS. LAB 07/02: HEMOGLOBIN 7.6 RISKS: OP REPORT 06/29: ROBOT R COLECTOMY TREATMENT: PN 07/01: HIS LOVENOX HAS BEEN DISCONTINUED. BED REST. CPOE CBC W/ DIFF AM RUN ORDERED 06/29, 07/01 & 07/02 ORDER 07/01: TYPE & SCREEN STAT. PACKED CELLS -LEUKOREDUCED Thank you, Maria A (This form is maintained as a part of the permanent medical record) 2015 [employer]. All Rights Reserved aMria A Vuong RN, BSN [email or web address] Office: [phone] [facility] CENTERMulugeta
[2018-07-02] MEDS: Ferrous Sulfate 325 MG TAB PO SCH (19:21)
[2018-07-02] MEDS: cefTRIAXone\\ROCEPHIN 1 GM in Sodium Chloride 0.9% 100 ML IVPB SCH (20:54)
[2018-07-03 05:28] LABS: #Eosinphils 0.1 thou/uL (0.0-0.7); #Lymphocytes 1.7 thou/uL (1.20-3.40); #Monocytes 0.8 thou/uL (0.11-0.59); #Neutrophils 5.6 thou/uL (1.40-6.50); %Basophils 0.4 % (0.0-1.0); %Eosinophils 1.6 % (0.0-10.0); %Lymphocytes 20.1 % (21.0-51.0); %Monocytes 9.7 % (0.0-10.0); %Neutrophils 68.1 % (42.0-75.0); Hemoglobin 7.9 g/dL (14.0-18.0); Mean Corpuscular HGB CONC 32.6 g/dL (32.0-36.0); Mean Corpuscular Hemoglobin 29.9 pg (27.0-31.0); Mean Corpuscular Volume 91.7 fL (78.0-98.0); Mean Platelet Volume 7.6 fL (7.4-10.4); Platelet Count 274 thou/uL (130-400); RBC Distribution Width 11.4 % (11.5-14.5); Red Blood Cell (RBC) Count 2.64 mill/uL (4.70-6.10); White Blood Cell (WBC) Count 8.2 thou/uL (4.8-10.8)
[2018-07-03] MEDS: Famotidine 20 MG TAB PO SCH (08:14)
[2018-07-03] MEDS: Ferrous Sulfate 325 MG TAB PO SCH (08:14)
[2018-07-03 08:24] VITALS: TEMP 98.2
[2018-07-03 11:47] VITALS: BP 116/67
--- NOTE | 2018-07-03 15:07 | OP ---
DATE OF SURGERY: 06/29/2018 PREOPERATIVE DIAGNOSIS: Dysplastic right colon polyp with inadequate colonoscopic resection. POSTOPERATIVE DIAGNOSIS: Dysplastic right colon polyp with inadequate colonoscopic resection. OPERATION PERFORMED: Robotic right hemicolectomy. SURGEON: Marcos Grissom M.D. ANESTHESIA: General endotracheal. INDICATIONS: The patient is a 63-year-old white male. He had presented for routine screening colono scopy, which revealed a 6 cm polyp just distal to the ileocecal valve. This had several areas of hig h-grade dysplasia. It was uncertain whether there had been a complete resection of this or not and m argins were unable to be determined. Surgical resection was recommended. DESCRIPTION OF OPERATION: Informed consent was obtained. The patient taken to the operating room wh ere general endotracheal anesthesia was obtained with the patient in supine position. At the initiat ion of the procedure, a Horton catheter was to be placed per nursing staff in the usual fashion. Unfo rtunately, in the course of placing this, a significant volume of blood was seen within the Horton cat heter tubing. The placement of the catheter was stopped and Urology was consulted. Dr. Almonte graciously presented immediately and performed a cystoscopy. She recognized that a s ignificant false passage had been formed. She was able to cystoscopically place a Horton catheter. A fter this was placed, attention was returned to the colon resection. The abdomen was prepped with ChloraPrep and draped in sterile fashion. Local anesthetic was infiltra laura at each port site using 0.25% Marcaine with epinephrine. A total of 4 incisions were created. T here was an 8 mm periumbilical incision, a 12 mm left upper quadrant incision, an 8 mm suprapubic inc ision, and a 12 mm left lower quadrant incision to be used as an assist port. A Veress needle was passed into the abdominal cavity and pneumoperitoneum established using carbon di oxide up to a pressure of 15 mmHg. An 8 mm trocar port was passed through this incision and robotic camera was passed internally. The remaining three ports were placed under direct vision. The robot was docked to the 3 robotic ports as well as to the camera and the operation was continued from the r obotic console. I initially noted that the patient had adhesions from the cecum up to the anterior abdominal wall. T his was tenting up to the cecum, which actually aided in visualization of the ileocolic vessels. The se were identified. Inferior to the vessels, a retroperitoneal dissection was carried laterally up t o the abdominal wall, underneath the right colon. The vessels were then carefully divided using the LigaSure device. I then carried the retroperitoneal dissection superiorly, identified the duodenum, and sweeping this posteriorly. I then carried the dissection through the mesentery of the proximal t ransverse colon up to the colon. This was cleared circumferentially and divided using two fires of [facility] robotic stapler using the blue load. The mesenteric dissection was then carried inferiorly from the ileocolic vessels down to the appropri ate segment of the distal ileum. This was also cleared circumferentially and divided with a fire of the robotic stapler. The remainder of the lateral attachments of the right colon were mobilized by i ncising the white line of Toldt and dissecting the colon free. This was then passed up into the [facility] upper quadrant over the liver. There were some adhesions between the distal ileum and the right lateral abdominal wall. These were mobilized. I also had to mobilize the transverse colon by completely dissecting the omentum off of [facility] proximal transverse colon. These two segments were then able to be approximated easily. I placed a single suture of 3-0 Vicryl between the distal small bowel and the transverse colon about 7 or 8 c m from the stapled end. The suture was tented anteriorly. Enterotomies were created in both the sma ll bowel and the colon and the robotic stapler was passed through these enterotomies, positioned appr opriately, and fired so as to create the ileocolic anastomosis. The anastomosis was inspected and found to be hemostatic and intact. A common opening for the staple r was then closed using a running suture of 3-0 Stratafix. This was closed in a to and fro fashion b y placing the continuous running suture from the bottom to the top and then back down to the bottom a gain. This was well closed. The Vicryl suture was then tied so as to secure that segment as well. The right side of the abdomen was then irrigated and all irrigant was aspirated. There had never bee n any significant blood loss during the course of the operation. The two 12 mm port sites were then closed with 0 Vicryl suture using a GraNee needle. The colon was then mobilized back down to the low er abdomen. It was grasped with the Prestige grasper. All ports were removed under direct vision. Externally, attention was turned to the suprapubic port. This incision was extended to 4 cm. Dissec tion was carried down into the abdominal cavity using muscle splitting technique. The small Jori r etractor was placed. I passed the colon tumor itself using the grasper and the colon was able to be easily removed through the suprapubic opening. This was then passed off the field. The suprapubic wound was then closed. I used new pair of gloves and new instruments even though the colon had never been opened except internally within the abdomen. The peritoneum and transversalis f ascia were closed with a running suture of #1 PDS. The anterior fascia was also closed with a runnin g suture of #1 PDS. The wound was copiously irrigated using the pressure asbestos worker helper. The remainder o f the wound was closed in layers with 3-0 and 4-0 Monocryl. The other port sites were closed with 4- 0 Monocryl. Dermabond was placed externally. There were no complications. Blood loss was negligibl e. The patient tolerated the procedure well and was taken to recovery room in stable condition. The Horton catheter was left in place and will be left in place for 1 week to allow for appropriate heali ng.
--- NOTE | 2018-07-04 17:42 | EKG ---
Test Reason : CODE GREEN Blood Pressure : / mmHG Vent. Rate : 074 BPM Atrial Rate : 074 BPM P-R Int : 146 ms QRS Dur : 084 ms QT Int : 382 ms P-R-T Axes : 068 023 030 degrees QTc Int : 424 ms Normal sinus rhythm Normal ECG When compared with ECG of 22-JUN-2018 09:02, No significant change was found Confirmed by ANGI PUENTE (2) on 07/04/2018 5:42:03 PM Referred By: VALENTIN Confirmed By:ANGI PUENTE
== END 2018-07-03 13:24 | disposition home or self-care (01) | DRG 330 ==
LOC: EDSTATUS 06-22 08:00 → SURG A 06-29 10:20 → SURG B 06-29 20:27
PROVIDERS: ADMIT Specialist; ATTEND Specialist
PROC: 0TJB8ZZ Inspection of Bladder, Via Natural or Artificial Opening Endoscopic (ICD-10-PCS; 2018-06-29)
PROC: 0T7D8ZZ Dilation of Urethra, Via Natural or Artificial Opening Endoscopic (ICD-10-PCS; 2018-06-29)
PROC: 0DTF4ZZ Resection of Right Large Intestine, Percutaneous Endoscopic Approach (ICD-10-PCS; principal; 2018-07-03)
PROC: 8E0W4CZ Robotic Assisted Procedure of Trunk Region, Percutaneous Endoscopic Approach (ICD-10-PCS; 2018-07-03)
DX: D12.2 Benign neoplasm of ascending colon (principal); D62 Acute posthemorrhagic anemia; R31.0 Gross hematuria; N40.0 Benign prostatic hyperplasia without lower urinary tract symptoms; R55 Syncope and collapse; Z79.899 Other long term (current) drug therapy; Z79.2 Long term (current) use of antibiotics
CPT/HCPCS: 36415; 36416; 80048; 80053; 85025; 85610; 85730; 86850; 86900; 86901; 88307; 93005; 93010; C1769; J0131; J0670; J0694; J0696; J1100; J1200; J1650; J1885; J2001; J2250; J2405; J2704; J2765; J3010; J7050; S0028

== ENCOUNTER 2018-06-22 07:44 | Outpatient (CLI) | payer BC ==
[2018-06-22 13:18] LABS: #Basophils 0.1 thou/uL (0.0-0.2); #Eosinphils 0.2 thou/uL (0.0-0.7); #Lymphocytes 1.3 thou/uL (1.20-3.40); #Monocytes 0.7 thou/uL (0.11-0.59); %Basophils 1.5 % (0.0-1.0); %Eosinophils 3.4 % (0.0-10.0); %Lymphocytes 24.2 % (21.0-51.0); %Monocytes 13.3 % (0.0-10.0); %Neutrophils 57.6 % (42.0-75.0); Hemoglobin 14.2 g/dL (14.0-18.0); Mean Corpuscular HGB CONC 33.9 g/dL (32.0-36.0); Mean Corpuscular Hemoglobin 30.9 pg (27.0-31.0); Mean Corpuscular Volume 91.3 fL (78.0-98.0); Mean Platelet Volume 7.4 fL (7.4-10.4); Platelet Count 342 thou/uL (130-400); RBC Distribution Width 11.8 % (11.5-14.5); Red Blood Cell (RBC) Count 4.57 mill/uL (4.70-6.10); White Blood Cell (WBC) Count 5.2 thou/uL (4.8-10.8)
[2018-06-22 13:31] LABS: Hemoglobin A1c 5.2 % (4.0-6.0)
[2018-06-22 13:47] LABS: Anion Gap 14 mmol/L (10-20); BUN (Urea Nitrogen) 10 mg/dL (8.4-25.7); Calc. Creatinine Clearance 0 mL/min (70-130); Calcium 9.6 mg/dL (7.8-10.44); Carbon Dioxide 27 mmol/L (23-31); Chloride 102 mmol/L (98-107); Estimated GFR-MDRD Greater than 90; Glucose 68 mg/dL (80-115); Potassium 3.8 mmol/L (3.5-5.1); Sodium 139 mmol/L (136-145)
--- NOTE | 2018-06-22 17:45 | EKG ---
Test Reason : Blood Pressure : / mmHG Vent. Rate : 070 BPM Atrial Rate : 070 BPM P-R Int : 164 ms QRS Dur : 090 ms QT Int : 394 ms P-R-T Axes : 071 027 039 degrees QTc Int : 425 ms Normal sinus rhythm Normal ECG No previous ECGs available Confirmed by DR. Eneida GHOSH ([id number]) on 06/22/2018 5:45:26 PM Referred By: VALENTIN Confirmed By:DR. Eneida GHOSH
== END 2018-06-22 07:45 | disposition home or self-care (01) ==
LOC: LABBT 07:44
PROVIDERS: ATTEND Specialist
DX: Z01.818 Encounter for other preprocedural examination (principal); K63.5 Polyp of colon
CPT/HCPCS: 80048; 83036; 85025; 93005; 93010

== ENCOUNTER 2018-09-16 14:20 | Outpatient (CLI) | payer BC ==
[2018-09-16 16:33] LABS: Bilirubin Negative (Negative); Blood, Urine Large (Negative); Clarity CLEAR (Clear); Glucose, Urine (Dipstick) 100 mg/dL (Negative); Hemoglobin 13.7 g/dL (14.0-18.0); Leukocyte Negative (Negative); Mean Corpuscular HGB CONC 32.9 g/dL (32.0-36.0); Mean Corpuscular Volume 88.2 fL (78.0-98.0); Mean Platelet Volume 7.1 fL (7.4-10.4); Nitrite Negative (Negative); Platelet Count 479 thou/uL (130-400); Protein, Urine (Dipstick) Trace mg/dL (Neg-Trace); RBC Distribution Width 13.1 % (11.5-14.5); Red Blood Cell (RBC) Count 4.74 mill/uL (4.70-6.10); Specific Gravity, Urine 1.022 (1.002-1.036); Urobilinogen 0.2 mg/dL (0.2-1.0); pH, Urine 6.5 (5.0-9.0)
[2018-09-16 16:36] LABS: Bacteria/HPF None Seen HPF (None Seen); Hyaline Casts/LPF 0-3 HYALINE CAST LPF (0-3 Hyaline); Pathc Cast-AUWi Flag 0.43 (0-2.49); RBC/HPF GREATER THAN 50-TNTC HPF (0-3); Squamous Epithelial 0-3 HPF (0-3)
[2018-09-16 16:39] LABS: PTT 37.2 SEC (22.9-36.1); Prothrombin Time 13.6 SEC (12.0-14.7)
[2018-09-16 16:58] LABS: Anion Gap 13 mmol/L (10-20); BUN (Urea Nitrogen) 17 mg/dL (8.4-25.7); Calc. Creatinine Clearance 0 mL/min (70-130); Calcium 9.4 mg/dL (7.8-10.44); Carbon Dioxide 26 mmol/L (23-31); Chloride 105 mmol/L (98-107); Estimated GFR-MDRD Greater than 90; Glucose 132 mg/dL (80-115); Potassium 3.9 mmol/L (3.5-5.1); Sodium 140 mmol/L (136-145)
--- NOTE | 2018-09-17 19:00 | EKG ---
Test Reason : Blood Pressure : / mmHG Vent. Rate : 076 BPM Atrial Rate : 076 BPM P-R Int : 154 ms QRS Dur : 094 ms QT Int : 384 ms P-R-T Axes : 074 050 047 degrees QTc Int : 432 ms Normal sinus rhythm Normal ECG When compared with ECG of 01-JUL-2018 12:09, No significant change was found Confirmed by Maria T TOBIN ([id number]) on 09/17/2018 6:59:39 PM Referred By: PERLA Confirmed By:Maria T TOBIN
== END 2018-09-16 14:21 | disposition home or self-care (01) ==
LOC: LABBT 14:20
PROVIDERS: ATTEND Urology
DX: Z01.818 Encounter for other preprocedural examination (principal); Z12.5 Encounter for screening for malignant neoplasm of prostate; N36.5 Urethral false passage; N40.0 Benign prostatic hyperplasia without lower urinary tract symptoms; R97.20 Elevated prostate specific antigen [PSA]; N35.919 Unspecified urethral stricture, male, unspecified site
CPT/HCPCS: 80048; 81001; 85027; 85610; 85730; 87081; 87086; 93005; 93010

== ENCOUNTER 2018-09-22 08:07 | Day surgery (SDC) | payer BC ==
[2018-09-16 14:44] VITALS: BMI 25.9
[2018-09-22] MEDS ORDERED: cefTRIAXone\\ROCEPHIN 1 GM VIAL ONE (09:54)
[2018-09-22] MEDS ORDERED: Sodium Chloride 0.9% 100 ML ONE (09:55)
[2018-09-22] MEDS ORDERED: Iothalamate Meglumine 60% 50 ML VIAL FS ONE (13:50)
[2018-09-22] MEDS ORDERED: Oxybutynin 5 MG TAB ONE (15:38)
[2018-09-22] MEDS ORDERED: Phenazopyridine HCl 97.5 MG TABLET ONE (15:39)
--- NOTE | 2018-09-22 20:39 | OP ---
DATE OF PROCEDURE: 09/22/2018 PREOPERATIVE DIAGNOSES: A 63-year-old male with history of traumatic Horton catheter placement, multiple false passage, prior cystoscopy, Horton catheter placement over a guidewire performed on June 29, 2018. POSTOPERATIVE DIAGNOSES: 1. Recurrent urethral stricture. 2. Unremarkable STACI with elevated PSA of 6.3. PROCEDURES PERFORMED: Cystoscopy, urethral stricture dilatation, direct vision internal urethrotomy, and 22-Bolivian [place] tip Horton catheter placement over a guidewire assist. COMPLICATIONS: None apparent. DISPOSITION: To recovery room in stable condition. INDICATIONS FOR PROCEDURE AND HISTORY: Mr. Hoffman is a pleasant 63-year-old male, whom I initially saw as an intraoperative consultation back in June 29, 2018, as he was undergoing robotic right hemicolectomy. The Horton catheter was unable to be placed and there were multiple false passages upon cystoscopy. At that time, cystoscopy was performed with a guidewire assist placing a Horton catheter. He had multiple bulbar urethral stricture, 14-Bolivian caliber, there were multiple false passages in the bulbar urethra with minimal BPH component. I advised the patient regarding staging cystoscopy due to the above issues and recent cystoscopy demonstrated a 10-Bolivian caliber, proximal penile urethral stricture and he presents today for DVIU. As he had an elevated PSA, he was advised regarding prostate biopsy as well. INTRAOPERATIVE FINDINGS: 1. Multiple proximal penile to bulbar urethral stricture, the proximal penile structures were soft, bulbar stricture was somewhat dense, unable to be dilated over Lamine, therefore DVIU performed. 2. Remnant of false passage noted in the bulbar urethra at 6 o'clock position. 3. No significant BPH on cystoscopy. 4. Bladder grossly unremarkable for lesion, trabeculation, or tumor. DESCRIPTION OF PROCEDURE: After an informed consent was signed, the patient was taken to the operating room, placed in a dorsal lithotomy position with the genital area prepped and draped in the usual surgical sterile fashion. Bilateral JOHN hose, SCDs, and broad-spectrum antibiotics were provided. A 17-Bolivian cystoscope was utilized for staging cystoscopy. On cystoscopy, the caliber appears to be approximately a 10-Bolivian caliber. I was able to intubate an open-ended catheter, which did pass up to the level of the bladder. A wire was then placed 0.35 Super Stiff to the level of the bladder. I performed a DVIU releasing the proximal penile urethral strictures, but appeared to be soft. However, as I was unable to engage the location of the further proximal stricture, I did dilate the residual stricture over guidewire with Lamine. There was some resistance passing a 20-Bolivian. Therefore, I did not further pursue. At this time, I re-staged his urethra demonstrating that there was a dense stricture at the bulbar urethra, which further DVIU was performed. This was well away from his sphincter. There was evidence of bulbar urethral false passage residual at the 6 o'clock position. The prostatic urethra was staged, demonstrating no evidence of obstruction. The bladder was entered, which demonstrated no evidence of bladder trabeculation, stones, or tumors. At this time, we placed a 22-Bolivian [place] tip Horton catheter over a guidewire assist. As he had multiple strictures requiring DVIU, I did make the decision not to perform the prostate biopsy at this time as I felt that this would increase his risk of infection. Moreover, possibility of hematuria warranting prolonged catheter is an issue. Therefore, I will discuss with him with regarding a prostate biopsy at a later date. Moreover, I will consider repeating a PSA at a later date as there was a possibility that the PSA is elevated due to irritative voiding dysfunction due to multiple strictures. He tolerated the procedure well and transported to the recovery room in stable condition. He will be discharged with antibiotic until followup appointment, [place] #30, Colace, and Mari p.rGarrickn. Job ID: [id number]
--- NOTE | 2018-09-24 14:05 | RAD ---
RETROGRADE PYELOGRAM: HISTORY: Cystoscopy. FINDINGS: A catheter is seen in the urinary bladder. No contrast is seen in the pelvicalyceal systems, ureters , or the urinary bladder. POS: [facility]
== END 2018-09-22 17:40 | disposition home or self-care (01) ==
LOC: SDC 08:07
PROVIDERS: ATTEND Urology
PROC: 0T7D8ZZ Dilation of Urethra, Via Natural or Artificial Opening Endoscopic (ICD-10-PCS; principal; 2018-09-22)
DX: N35.912 Unspecified bulbous urethral stricture, male (principal); N36.5 Urethral false passage; Z79.52 Long term (current) use of systemic steroids; Z79.2 Long term (current) use of antibiotics
CPT/HCPCS: 74420; C1758; J0696; J7050; Q9961

== ENCOUNTER 2021-08-06 08:19 | Outpatient (CLI) | payer MEDICARE, OTHER ==
[2021-08-06] MEDS ORDERED: Iopamidol 370 76% 100 ML VIAL ONE (09:34)
== END 2021-08-06 08:20 | disposition home or self-care (01) ==
LOC: CT 08:19
PROVIDERS: ATTEND Internal Medicine Hematology & Oncology
DX: C61 Malignant neoplasm of prostate (principal); K80.20 Calculus of gallbladder without cholecystitis without obstruction; N28.1 Cyst of kidney, acquired; M47.818 Spondylosis without myelopathy or radiculopathy, sacral and sacrococcygeal region; Z90.49 Acquired absence of other specified parts of digestive tract
CPT/HCPCS: 74177; 78306; 78803; A9503; Q9967

== ENCOUNTER 2024-03-28 08:13 | Day surgery (SDC) | payer MEDICARE ==
[2024-03-15 10:12] VITALS: BMI 27.0
[2024-03-28] MEDS ORDERED: LevoFLOXacin D5W 500 mg (100 mL) BAG ONE (09:11)
[2024-03-28] MEDS ORDERED: Lidocaine 1% MPF 2 ML VIAL ONE (09:27)
[2024-03-28] MEDS ORDERED: Iopamidol 30 ML ONE (09:54)
[2024-03-28] MEDS ORDERED: SUGAMMADEX SODIUM 200 MG/2 ML VIAL ONE (10:00)
[2024-03-28] MEDS ORDERED: fentaNYL PF 100 MCG/2 ML SYRINGE ONE (10:02)
[2024-03-28] MEDS ORDERED: PROPOFOL 20 ML ONE (10:02)
[2024-03-28] MEDS ORDERED: Dexamethasone 20 MG/5 ML VIAL ONE (10:30)
[2024-03-28] MEDS ORDERED: Ondansetron PF 4 MG/2 ML Vial ONE (10:30)
[2024-03-28] MEDS ORDERED: Rocuronium Bromide 10 MG/ML (10ML VIAL) ONE (10:30)
[2024-03-28] MEDS ORDERED: Phenazopyridine HCl 100 MG TAB ONE (11:54)
[2024-03-28] MEDS ORDERED: Oxybutynin 5 MG TAB ONE (11:55)
[2024-03-28] MEDS ORDERED: fentaNYL 50 mcg/mL 1 mL Vial ONE ×2 (12:09→12:31)
[2024-03-28] MEDS ORDERED: HYDROcodone/Acetaminophen 5/325 mg Tablet ONE (13:41)
== END 2024-03-28 14:16 | disposition home or self-care (01) ==
LOC: SDC 08:13
PROVIDERS: ATTEND Urology
PROC: 0TC48ZZ Extirpation of Matter from Left Kidney Pelvis, Via Natural or Artificial Opening Endoscopic (ICD-10-PCS; principal; 2024-03-28)
PROC: 0TC78ZZ Extirpation of Matter from Left Ureter, Via Natural or Artificial Opening Endoscopic (ICD-10-PCS; 2024-03-28)
PROC: 0T778DZ Dilation of Left Ureter with Intraluminal Device, Via Natural or Artificial Opening Endoscopic (ICD-10-PCS; 2024-03-28)
DX: N20.1 Calculus of ureter (principal); N13.5 Crossing vessel and stricture of ureter without hydronephrosis; N35.912 Unspecified bulbous urethral stricture, male; N40.0 Benign prostatic hyperplasia without lower urinary tract symptoms; Z90.79 Acquired absence of other genital organ(s); Z79.899 Other long term (current) drug therapy
CPT/HCPCS: 52356; 74018; 74420; 82365; C1747; C1769; C2617; J1100; J1956; J2405; J2704; J3010; Q9967; 88184; 88300

== ENCOUNTER 2024-04-07 08:50 | Emergency (ER) | payer MEDICARE ==
[2024-04-07 09:44] LABS: #Basophils 0.04 10x3/uL (0.0-0.2); %Basophils 0.6 % (0.0-1.0); %Eosinophils 0.7 % (0.0-10.0); %Lymphocytes 14.9 % (21.0-51.0); %Monocytes 11.6 % (0.0-10.0); %Neutrophils 71.9 % (42.0-75.0); Hematocrit 40.9 % (42.0-52.0); Hemoglobin 13.8 g/dL (14.0-18.0); Mean Corpuscular HGB CONC 33.7 g/dL (32.0-36.0); Mean Corpuscular Hemoglobin 29.7 pg (27.0-31.0); Mean Platelet Volume 9.6 fL (7.4-10.4); Platelet Count 255 10x3/uL (130-400); Red Blood Cell (RBC) Count 4.65 mill/uL (4.70-6.10)
[2024-04-07 09:55] LABS: ALT (SGPT) 23 U/L (8-55); AST (SGOT) 19 U/L (5-34); Albumin 4.1 g/dL (3.4-4.8); Alkaline Phosphatase 50 U/L (40-110); Anion Gap 11 mmol/L (10-20); BUN (Urea Nitrogen) 15 mg/dL (8.4-25.7); Bilirubin, Total 0.7 mg/dL (0.2-1.2); Calc. Creatinine Clearance 0 mL/min (70-130); Calcium 9.1 mg/dL (7.8-10.44); Carbon Dioxide 22 mmol/L (23-31); Chloride 107 mmol/L (98-107); Estimated GFR 86; Globulin 3.6 g/dL (2.4-3.5); Glucose 100 mg/dL (80-115); Magnesium 2.2 mg/dL (1.6-2.6); Potassium 3.9 mmol/L (3.5-5.1); Protein, Total 7.7 g/dL (5.8-8.1); Sodium 136 mmol/L (136-145)
[2024-04-07 09:58] LABS: INR-International Normal Ratio 1.1; PTT 33.5 sec (22.9-36.1)
[2024-04-07 10:01] LABS: Troponin I Less than 0.010 ng/mL (< 0.028)
[2024-04-07 10:54] LABS: Influenza A by NAA Not Detected (NotDetected); Influenza B by NAA Not Detected (NotDetected); SARS-CoV-2 NAA Rapid Test Not Detected (NotDetected)
[2024-04-07 11:27] LABS: Bacteria/HPF None Seen HPF (None Seen); Bilirubin Negative (Negative); Blood, Urine Negative (Negative); CAUTI Indications for Culture Dysuria,urgency,freq; Clarity Clear (Clear); Glucose, Urine (Dipstick) Normal (Negative); Ketone, Urine Negative (Negative); Leukocyte Negative Leu/uL (Negative); Nitrite Negative (Negative); Protein, Urine (Dipstick) Negative (Neg-Trace); RBC/HPF None Seen HPF (0-3); Specific Gravity, Urine 1.014 (1.002-1.036); Squamous Epithelial 0-3 HPF (0-3); Urobilinogen Normal mg/dL (Less than 2); WBC/HPF 0-3 HPF (0-3)
[2024-04-07 12:33] LABS: Urine Culture Reflex No No
== END 2024-04-07 14:03 | disposition home or self-care (01) ==
LOC: ERS 08:50
DX: R06.02 Shortness of breath (principal); I10 Essential (primary) hypertension; E78.5 Hyperlipidemia, unspecified; Z55.6 Problems related to health literacy; Z75.3 Unavailability and inaccessibility of health-care facilities
CPT/HCPCS: 0240U; 71045; 71275; 81001; 83735; 83880; 84484; 85610; 85730; 93005; 99285; 80053; 84443; 85025

== ENCOUNTER 2024-06-10 07:19 | Day surgery (SDC) | payer MEDICARE, OTHER ==
[2024-06-07 14:49] VITALS: BMI 26.9
[2024-06-10] MEDS ORDERED: Heparin 10,000 UNITS/ 10 ML VIAL ONE (09:30)
[2024-06-10] MEDS ORDERED: Verapamil 5 MG/2 ML VIAL ONE (09:30)
[2024-06-10] MEDS ORDERED: Nitroglycerin 50 MG/250 ML BOT 250 ML ONE (09:30)
[2024-06-10] MEDS ORDERED: fentaNYL 50 mcg/mL 1 mL Vial ONE (09:54)
[2024-06-10] MEDS ORDERED: Midazolam HCl 2 mg/2 ml Vial ONE (09:54)
[2024-06-10 10:13] LABS: Cardiac Risk 3.2 (Less than 4.5)
[2024-06-10] MEDS ORDERED: Iopamidol 370 76% 100 ML VIAL ONE (10:55)
== END 2024-06-10 12:40 | disposition home or self-care (01) ==
LOC: CCL 07:19
PROVIDERS: ATTEND Internal Medicine Cardiovascular Disease
PROC: 4A023N7 Measurement of Cardiac Sampling and Pressure, Left Heart, Percutaneous Approach (ICD-10-PCS; principal; 2024-06-10)
DX: I47.20 Ventricular tachycardia, unspecified (principal); I49.3 Ventricular premature depolarization; I10 Essential (primary) hypertension; E78.5 Hyperlipidemia, unspecified; Z79.899 Other long term (current) drug therapy
CPT/HCPCS: 80061; 93452; C1769; J1644; J2250; J3010; 93458; 99152; C1894; Q9967